=== PATIENT | male | born 1995 | race Caucasian/White ===

== ENCOUNTER → 2017-04-05 10:52 | Outpatient (CLI) | payer OTHER, SELFPAY ==
--- NOTE | 2017-04-05 10:55 | CT_ITS ---
STUDY: CT ABDOMEN AND PELVIS WITH CONTRAST REASON FOR EXAM: Male, 21 years old. Right lower quadrant pain with constipation. RADIATION DOSAGE (If Supplied By Facility): CTDIvol = ( 11.15 ) mGy, DLP = ( 284.4 ) mGycm TECHNIQUE: Transaxial images were obtained from the dome of the diaphragm to the symphysis pubis without oral contrast. 100 ml of Isovue 300 contrast was administered. Sagittal and coronal images were reconstructed. Individualized dose optimization techniques were used for this CT. COMPARISON: None. FINDINGS: The visualized lung bases are unremarkable. The visualized portions of the heart are within normal limits. Normal liver. Normal gallbladder and extrahepatic biliary system. Normal spleen. Normal pancreas. Normal bilateral adrenal glands. Normal right kidney. Normal left kidney. Normal visualized stomach. There is evidence of circumferential thickening of the wall of the terminal ileum with increased markings in the surrounding fat. This is suggestive of terminal ileitis and Crohn's disease. This extends into the distal ileum as well. A small amount of fluid is seen in the pelvis. Normal colon. The appendix is visualized and appears normal. Normal abdominal aorta. Normal inferior vena cava. Normal retroperitoneum. Normal urinary bladder. Small rounded calcifications in the right hemipelvis most likely represent phleboliths. Normal abdominal wall. Normal osseous structures. CT/Abdomen/Pelvis WITH Contrast IMPRESSION: Findings suggestive of Crohn's disease of the terminal ileum and distal ileum with the circumferential wall thickening and inflammatory changes in the surrounding peritoneal fat. Electronically Signed: Jeovany Novak MD at 13:58 EST Tel [phone], Service support ,
== END ==
PROVIDERS: Family Provider Family Medicine; PCP Family Medicine; Visit Provider Family Medicine
DX: R10.9 Unspecified abdominal pain (principal)
CPT/HCPCS: 74177; Q9967

== ENCOUNTER → 2017-04-13 12:18 | Outpatient (CLI) | payer OTHER, SELFPAY ==
[2017-04-13 15:38] LABS: Hematocrit 43.1 % (40-54); Hemoglobin 13.8 g/dl (13.0-16.5); Mean Corpuscular Hgb 28.6 pg (27.0-32.0); Mean Corpuscular Volume 89.4 fL (80-94); Mean Platelet Vol. 10.8 fl (6.2-12.0); Platelet Count 308 K/mm3 (150-450); RBC Distribution Width CV 13.4 % (11.6-14.6); RBC Distribution Width SD 43.7 fl (35.1-43.9); Red Blood Count 4.82 M/mm3 (4.6-6.2); White Blood Count 7.7 K/mm3 (4.4-11.0)
[2017-04-13 15:59] LABS: Scan Indicated on CBC? Y/N NO
[2017-04-13 16:33] LABS: Erythrocyte Sedimentation Rate 17 mm/hr (0-15)
[2017-04-14 16:11] LABS: Endomysial Antibody IgA Negative (Negative)
[2017-04-15 07:18] LABS: Immunoglobulin A 325 mg/dL (90-386); t-Transglutaminase IgA <2 U/mL (0-3)
== END ==
PROVIDERS: Family Provider Family Medicine; PCP Family Medicine; Visit Provider Internal Medicine Gastroenterology
DX: R10.9 Unspecified abdominal pain (principal); R19.7 Diarrhea, unspecified
CPT/HCPCS: 36415; 82784; 83516; 85027; 85652; 86140; 86255

== ENCOUNTER 2017-04-21 06:59 | Day surgery (SDC) | payer OTHER, SELFPAY ==
--- NOTE | 2017-04-21 | COLBX_PTH ---
PATIENT: GEORGE FIELDS LOC: EN U#:[id number] AGE/SX: 21/M ROOM: RE04/21/[address]: Dr. Jairo Jorge MD : 1995 BED: DIS: 04/21/2017 SPEC #: [id number] RECD: 04/21/17 14:59 STATUS: JUAN FRANCISCO OLIVE #: [id number] GOMEZ: 04/21/17 00:[address]: Jairo Jorge DEPT: SURGICAL PATHOLOGY RECD BY: Álvaro El ENTERED: 04/21/17 14:59 SP TYPE: COLON BX OTHR DR: Dr. Sangeetha Bond MD Tissues: A - Cecum, NOS B - Transverse colon Procedures: Surgery Specimen Level IV HEADER OPERATION: Colonoscopy with biopsy PRE-OP DIAGNOSIS: Abdomen pain and nausea TISSUE SUBMITTED: A ? Ileocecal valve biopsy, rule out Crohn?s, B ? Transverse and left colon biopsy, rule out Crohn?s MICROSCOPIC DIAGNOSIS A. Ileocecal valve, biopsy: Mild architectural change. No evidence of Crohn?s enteritis. B. Transverse and left colon, biopsy: No pathologic diagnosis. No evidence of colitis. AM:alfredo 04/22/17 MICROSCOPIC DESCRIPTION Slides are reviewed. GROSS DESCRIPTION A - Received in fixative is one container labeled with the patient's name and designated ileocecal valve biopsy. The specimen consists of multiple irregular fragments of light egan soft tissue that in aggregate measure 1 x 0.3 x 0.1 cm. The specimen is totally submitted in one cassette. B - Received in fixative is one container labeled with the patient's name and designated transverse and left colon biopsy. The specimen consists of multiple irregular fragments of light egan soft tissue that in aggregate measure 1 x 0.5 x 0.1 cm. The specimen is totally submitted in one cassette. / SJ:alfredo 04/21/17 TC:5 CPT: 67480 x2
[2017-04-21 07:23] VITALS: BP 103/69; PULSE 69; RESP 16; TEMP 36.4; O2SAT 100; BMI 20.7
[2017-04-21 08:37] VITALS: BP 103/69; BP 96/62; PULSE 75; RESP 14; TEMP 36.3; O2SAT 100
--- NOTE | 2017-04-21 08:37 | PCM.OP.BLANK ---
Operative Report Date of Procedure: 04/21/17 Preop diagnosis: [Patient with abnormal CAT scan and abdominal pain] Postop diagnosis: [Colonoscopy to the ileum with biopsy of mucosa stenotic ileocecal valve noted] Anesthesia:[Provided the MAC] Instrument:[Olympus adjustable pediatric colonoscope] Informed consent was taken prior to procedure. The patient was brought to the endoscopy suite and placed in the left shoulder down. Anesthesia provided the MAC. Rectal exam was performed prior to inserting the scope. The colonoscope was passed into the rectum rectal mucosa was normal. moving into the sigmoid colon there was some erythema of the mucosa. The splenic flexure into the transverse colon mucosa was normal. Down the right colon ileocecal valve was markedly deformed difficult to intubate the terminal ileum as the valve was stenotic. The biopsy forceps were inserted into the stenosis and multiple biopsies were taken of the ileocecal valve and the distal terminal ileum. The scope was withdrawn up the right colon no large polyps seen across the transverse colon some random biopsies were taken. Down the left colon random biopsies were taken of the mucosa especially in the area of some erythema in the sigmoid colon. Retro-flexion performed the rectum showed no evidence of a fistula. The colon was decompressed and the patient tolerated the procedure well. 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 Plan: Follow-up the biopsies start the patient on biological therapy CLIFTON Bond
[2017-04-21 08:42] VITALS: BP 103/69; BP 112/67; PULSE 67; RESP 16; O2SAT 100
[2017-04-21 08:47] VITALS: BP 103/69; BP 113/56; PULSE 65; RESP 16; O2SAT 100
[2017-04-21 08:52] VITALS: BP 102/77; BP 103/69; PULSE 59; RESP 16; TEMP 36.3; O2SAT 100
[2017-04-21 09:44] VITALS: BP 103/69
== END 2017-04-21 10:01 | disposition home or self-care (01) ==
LOC: EN 06:59 → AC 07:01
PROVIDERS: Family Provider Family Medicine; PCP Family Medicine; Visit Provider Internal Medicine Gastroenterology
PROC: 0DJD8ZZ Inspection of Lower Intestinal Tract, Via Natural or Artificial Opening Endoscopic (ICD-10-PCS; CPT 45378; principal; 2017-04-21 07:55)
DX: K58.0 Irritable bowel syndrome with diarrhea (principal); K56.699 Other intestinal obstruction unspecified as to partial versus complete obstruction; R93.8 Abnormal findings on diagnostic imaging of other specified body structures; R10.31 Right lower quadrant pain; R11.0 Nausea; F17.200 Nicotine dependence, unspecified, uncomplicated; F12.90 Cannabis use, unspecified, uncomplicated
CPT/HCPCS: 45380; 88305; J7120

== ENCOUNTER → 2017-05-18 15:56 | Outpatient (CLI) | payer OTHER, SELFPAY ==
[2017-05-22 03:06] LABS: QNTFERON TB Ag Minus Nil Value < 0 IU/mL (.); QNTFERON TB Ag Value 0.02 IU/mL (.); QNTFERON TB Mitogen Value > 10.00 IU/mL (.); QNTFERON TB Nil Value 0.04 IU/mL (.)
[2017-05-22 06:22] LABS: Hep B Surface Antibodies Non Reactive (.); QNTIFERON TB Gold Negative (Negative)
== END ==
PROVIDERS: Family Provider Family Medicine; PCP Family Medicine; Visit Provider Internal Medicine Gastroenterology
DX: K50.90 Crohn's disease, unspecified, without complications (principal)
CPT/HCPCS: 36415; 86480; 86706

== ENCOUNTER 2017-06-12 00:34 | Emergency (ER) | payer OTHER, SELFPAY ==
[2017-06-12 00:35] VITALS: BP 116/63; PULSE 59; RESP 14; TEMP 36.6; O2SAT 95; BMI 21.2
--- NOTE | 2017-06-12 01:03 | ED.DCSUM_ITS ---
- ER Visit Summary Date of Service: 06/12/17 Chief Complaint: Nausea and vomiting History of Present Illness: The patient is a 21 M nausea and vomiting for the past 24 hours. States too many to count, no hematemesis. No dry heaves. Mild abdominal discomfort due to the vomiting. Diagnosed with Crohn's disease in February this past year. Currently on steroids 3 times a day. Was able to keep down his meds yesterday. No fevers. Complains of chills and sweats. No upper respiratory symptoms. No urinary symptoms. Call on-call physician, Dr. Garcia, was told to the ED for evaluation. Mother does have Zofran at home for herself however none was given to him. Currently nauseated. Physical Examination: General: Alert and oriented ?3, no acute distress HEENT: Normocephalic, atraumatic. Moist mucosa membranes Neck: supple, nontender. Cardiovascular: Regular rate and rhythm, no murmurs Respiratory: Normal breath sounds, symmetric, no distress Abdomen: Soft, nontender, nondistended Extremities: Nontender, no edema, pulses intact ?4 Neuro: no focal neurological deficits. Test Results: BMP: Potassium 3.7. Creatinine 0.81. Emergency Department Course and Treatment: Patient nonsurgical abdomen. Vital signs stable. Nontoxic. Initial trial Zofran ODT and p.o. challenge, is able to keep it down, however nausea still there. IV was placed. Given IV fluids, let her lites check was normal. He is given IV Phenergan. He felt better from this. Orally challenge with no difficulties. Discharge with prescription of Phenergan use as needed continue oral hydration. Return if any worsening symptoms. All questions were answered. Treatment Plan: [] Disposition: Discharge Impression: 1. Nausea and vomiting - stable This note was generated with [employer] dictation software. It may contain incorrect words, spelling, and punctuation that were not noted in review of the chart prior to signing ED Disposition - Plan for ED Patient: Disposition: Home or Assisted Living Chief Complaint: Nausea/Vomiting Diagnosis: Nausea and vomiting Instructions: ED Nausea Vomiting Prescriptions: proMETHazine tablet [Phenergan tablet] 25 mg PO Q6H PRN PRN #10 tablet PRN Reason: Nausea Referrals: Sangeetha Bond MD [Primary Care Provider] - 3-5 Days
[2017-06-12] MEDS: Ondansetron ODT 4 MG Tablet 8 MG PO (01:07)
[2017-06-12] MEDS: 0.9% Normal Saline 1,000 ML 1000 ML IV (01:48)
[2017-06-12] MEDS: proMETHazine 25 MG/ML Syringe 12.5 MG IV (01:48)
[2017-06-12 02:01] LABS: Anion Gap 9 (5-15); BUN 16 mg/dL (7-18); BUN/Creat Ratio 19.7 RATIO (10-20); Calcium,Total 9.3 mg/dL (8.5-10.1); Chloride 103 mmol/L (98-107); Creatinine, Serum 0.81 mg/dL (0.70-1.30); EST Glomerular Filtration Rate 130 mL/min (>60); Est Glom Filt Rate - Afr Amer 157 mL/min (>60); Estimated Creatinine Clearance 135.52 ml/min; Glucose 115 mg/dL (74-106); Potassium 3.7 mmol/L (3.5-5.1); Sodium Level 140 mmol/L (136-145)
[2017-06-12 02:57] VITALS: RESP 18
== END 2017-06-12 02:58 | disposition home or self-care (01) ==
PROVIDERS: Emergency Provider Emergency Medicine; Family Provider Family Medicine; PCP Family Medicine
DX: R11.2 Nausea with vomiting, unspecified (principal); K50.90 Crohn's disease, unspecified, without complications
CPT/HCPCS: 80048; 96361; 96374; 99283; J7030; A4216

== ENCOUNTER → 2017-07-19 14:51 | Outpatient (CLI) | payer OTHER, SELFPAY ==
[2017-07-19 15:02] VITALS: BP 109/68; PULSE 74; RESP 16; TEMP 36.4; O2SAT 96; BMI 22.1
== END ==
PROVIDERS: Family Provider Family Medicine; PCP Family Medicine; Visit Provider Internal Medicine Gastroenterology
DX: K50.90 Crohn's disease, unspecified, without complications (principal)
CPT/HCPCS: 96365; J7040; J7050; A4216; J3358

== ENCOUNTER → 2018-06-09 15:53 | Outpatient (CLI) | payer OTHER, SELFPAY ==
[2017-07-19 15:02] VITALS: BMI 22.1
--- NOTE | 2018-06-09 09:35 | COLBX_PTH ---
PATIENT: GEORGE FIELDS LOC: [facility] U#:[id number] AGE/SX: 29/M ROOM: RE06/09/[address]: Dr. Jairo Jorge MD : 1995 BED: DIS: SPEC #: [id number] RECD: 06/09/18 15:21 STATUS: JUAN FRANCISCO OLIVE #: [id number] GOMEZ: 06/09/18 09:[address]: Jairo Jorge DEPT: SURGICAL PATHOLOGY RECD BY: Yemi Lang ENTERED: 06/12/18 09:18 SP TYPE: COLON BX OTHR DR: Dr. Sangeetha Bond MD [facility] Tissues: Ileum, NOS Procedures: Surgery Specimen Level IV HEADER OPERATION: Colonoscopy with biopsies PRE-OP DIAGNOSIS: Crohn's TISSUE SUBMITTED: Terminal ileum biopsies, rule out active Crohn's MICROSCOPIC DIAGNOSIS Terminal ileum, biopsy: Fragments of small intestinal mucosa with mild architectural glandular distortion and chronic inflammation. Negative for active inflammation. See comment. SJ:alfredo 06/13/18 COMMENT Correlation with clinical, endoscopic findings and appropriate follow up are necessary. Please make reference to previous specimen ([id number]), ileocecal valve, biopsy with diagnosis of mild architectural change and transverse and left colon, biopsy with diagnosis of no pathologic diagnosis. MICROSCOPIC DESCRIPTION Slides are reviewed. GROSS DESCRIPTION Received in fixative is one container labeled with the patient's name and designated terminal ileum biopsy. The specimen consists of multiple irregular fragments of light egan soft tissue that in aggregate measure 0.6 x 0.2 x 0.1 cm. The specimen is totally submitted in one cassette. / MARCOS:alfredo 06/12/18 TC:5 CPT: 94782
== END ==
PROVIDERS: Family Provider Family Medicine; PCP Family Medicine; Referring Provider Internal Medicine Gastroenterology; Visit Provider Internal Medicine Gastroenterology
DX: K50.90 Crohn's disease, unspecified, without complications (principal)
CPT/HCPCS: 88305

== ENCOUNTER → 2021-10-21 | Outpatient (CLI) | payer OTHER, SELFPAY ==
[2021-10-21 18:02] LABS: Erythrocyte Sedimentation Rate 4 mm/hr (0-20)
[2021-10-21 18:05] LABS: Hematocrit 42.2 % (40-54); Hemoglobin 14.4 g/dL (13.0-16.5); Mean Corp Hgb Conc 34.1 g/dL (32-36); Mean Corpuscular Volume 90.9 fL (80-94); Mean Platelet Vol. 10.6 fl (6.2-12.0); Platelet Count 209 K/mm3 (150-450); RBC Distribution Width CV 11.8 % (11.6-14.6); RBC Distribution Width SD 39.2 fl (35.1-43.9); Red Blood Count 4.64 M/mm3 (4.6-6.2); White Blood Count 7.4 K/mm3 (4.4-11.0)
[2021-10-21 18:28] LABS: ALB/GLOB Ratio 1.2 RATIO (0.9-2.4); AST(SGOT) 14 U/L (15-37); Alanine Aminotransfer ALT/SGPT 20 U/L (16-61); Albumin, Serum 4.3 g/dL (3.2-5.0); Alkaline Phosphatase 54 U/L (45-117); Anion Gap 4 (5-15); BUN 15 mg/dL (7-18); BUN/Creat Ratio 18.1 RATIO (10-20); CRP < 2.90 mg/L (0.0-3.0); Chloride 103 mmol/L (98-107); Creatinine, Serum 0.83 mg/dL (0.70-1.30); EST Glomerular Filtration Rate 121 mL/min (>60); Est Glom Filt Rate - Afr Amer 146 mL/min (>60); Globulin 3.7 g/dL (2.2-4.2); Glucose 81 mg/dL (74-106); Potassium 3.8 mmol/L (3.5-5.1); Sodium Level 136 mmol/L (136-145)
== END | disposition home or self-care (01) ==
PROVIDERS: PCP Family Medicine; Referring Provider Internal Medicine Gastroenterology; Visit Provider Internal Medicine Gastroenterology
DX: K50.90 Crohn's disease, unspecified, without complications (principal)
CPT/HCPCS: 36415; 80053; 85027; 85652; 86140

== ENCOUNTER → 2022-02-17 | Outpatient (CLI) | payer OTHER, SELFPAY ==
[2022-02-17 17:16] LABS: Absolute Lymphocyte Count 1.77 X10^3/uL (0.83-4.51); Absolute Neutrophil Count 3.8 X10^3/uL (2.0-7.7); Basophil# 0.04 X10^3/uL; Basophil% 0.6 % (0-1); Eosinophil# 0.07 X10^3/uL; Eosinophils% 1.1 % (0-5); Hematocrit 43.8 % (40-54); Lymphocyte # 1.77 X10^3/ul (0.83-4.51); Lymphocyte % 28.6 % (19-41); Mean Corp Hgb Conc 34.2 g/dL (32-36); Mean Corpuscular Hgb 31.6 pg (27.0-32.0); Mean Corpuscular Volume 92.2 fL (80-94); Monocyte# 0.44 X10^3/uL; Monocyte% 7.1 % (0-10); NRBC Flagged by Analyzer 0 % (0-5); Neutrophil # 3.84 X10^3/uL (2.7-7.7); Neutrophil % 62.3 % (47-70); Platelet Count 219 K/mm3 (150-450); RBC Distribution Width CV 11.9 % (11.6-14.6); RBC Distribution Width SD 39.8 fl (35.1-43.9); Red Blood Count 4.75 M/mm3 (4.6-6.2); White Blood Count 6.2 K/mm3 (4.4-11.0)
[2022-02-17 17:49] LABS: ALB/GLOB Ratio 1.2 RATIO (0.9-2.4); AST(SGOT) 17 U/L (15-37); Alanine Aminotransfer ALT/SGPT 31 U/L (16-61); Albumin, Serum 4.3 g/dL (3.2-5.0); Alkaline Phosphatase 56 U/L (45-117); Anion Gap 4 (5-15); BUN 12 mg/dL (7-18); Calcium,Total 9.4 mg/dL (8.5-10.1); Chloride 103 mmol/L (98-107); Creatinine, Serum 0.75 mg/dL (0.70-1.30); EST Glomerular Filtration Rate 136 mL/min (>60); Est Glom Filt Rate - Afr Amer 165 mL/min (>60); Globulin 3.7 g/dL (2.2-4.2); Glucose 89 mg/dL (74-106); Potassium 3.6 mmol/L (3.5-5.1); Sodium Level 138 mmol/L (136-145)
[2022-02-19 15:08] LABS: Endomysial Antibody IgA Negative (Negative)
[2022-02-19 15:47] LABS: Immunoglobulin A 324 mg/dL (90-386); t-Transglutaminase IgA <2 U/mL (0-3)
[2022-02-19 16:08] LABS: Anti-Centromere B Ab <0.2 AI (0.0-0.9); Anti-Chromatin <0.2 AI (0.0-0.9); Anti-Jo <0.2 AI (0.0-0.9); Anti-Scleroderma-70 AB <0.2 AI (0.0-0.9); RNP Ab 0.2 AI (0.0-0.9); SJOGREN'S Anti-SS-A test < 0.2 AI (0.0-0.9); SJOGREN'S Anti-SS-B test < 0.2 AI (0.0-0.9); Smith Ab <0.2 AI (0.0-0.9)
[2022-02-19 20:52] LABS: Anti-Mitochondrial AB <20.0 Units (0.0-20.0); Anti-dsDNA Ab <1 IU/mL (0-9)
[2022-02-23 02:07] LABS: Albumin 4.4 g/dL (2.9-4.4); Alpha-1-Globulins 0.2 g/dL (0.0-0.4); Alpha-2-Globulins 0.7 g/dL (0.4-1.0); Cytoplasmic Ab (C-ANCA) 1:20 titer (Neg:<1:20); Gamma Globulin 1.2 g/dL (0.4-1.8); Immunoglobulin A 318 mg/dL (90-386); Immunoglobulin G 1160 mg/dL (603-1613); Immunoglobulin M 134 mg/dL (20-172); PROEL- TOTAL PROTEIN 7.6 g/dL (6.0-8.5)
[2022-02-23 12:44] LABS: Anti-Smooth Muscle ABS 11 Units (0-19); Immunoglobulin E 27 IU/mL (6-495); Perinuclear Ab (P-ANCA) <1:20 titer (Neg:<1:20)
== END | disposition home or self-care (01) ==
LOC: LAB 16:30
PROVIDERS: PCP Family Medicine; Visit Provider Internal Medicine Gastroenterology
DX: K50.90 Crohn's disease, unspecified, without complications (principal)
CPT/HCPCS: 36415; 80053; 82784; 82785; 83516; 84165; 85025; 86225; 86235; 86255; 86256; 86334

== ENCOUNTER → 2023-06-30 | Outpatient (CLI) | payer OTHER, SELFPAY ==
[2023-07-03 00:06] LABS: HEPATITIS B SURFACE AG Negative (Negative); Hep C Antibodies Non Reactive (Non Reactive); Hepatitis A IgM Antibody Negative (Negative); Hepatitis B Core AB IgM Negative (Negative); QNTFERON TB Mitogen Value > 10.00 IU/mL (.); QNTFERON TB1+ Ag Value 0.39 IU/mL (.); QNTFERON TB2+ Ag Value 0.56 IU/mL (.); QNTIFERON TB Positive Criteria Negative (Negative)
== END | disposition home or self-care (01) ==
PROVIDERS: PCP Family Medicine; Referring Provider Internal Medicine Gastroenterology; Visit Provider Internal Medicine Gastroenterology
DX: K50.90 Crohn's disease, unspecified, without complications (principal)
CPT/HCPCS: 36415; 80074; 86480